=== PATIENT | female | born 1975 | race Caucasian/White ===

== ENCOUNTER 2017-02-03 17:44 | Emergency (ER) | payer OTHER ==
[~2017-02-03] VITALS: Ht 152.4 cm; Wt 63.5 kg
[~2017-02-03 17:44] MED LIST: IBUP-2071 PO; LEVO75 PO
[2017-02-03] MEDS ORDERED: ACETAMINOPHEN 500 MG TABLET PO ONE (19:15)
[2017-02-03] MEDS ORDERED: CYCLOBENZAPRINE HCL 10 MG TABLET PO ONE (19:15)
[2017-02-03] MEDS ORDERED: KETOROLAC TROMETHAMINE 60 MG/2 ML VIAL IM ONE (19:15)
[2017-02-03 19:32] VITALS: BP 122/74
== END 2017-02-03 21:01 | disposition home or self-care (01) ==
LOC: EMS 17:45
DX: M54.5 Low back pain (principal); M25.511 Pain in right shoulder; M25.512 Pain in left shoulder; M54.2 Cervicalgia; E03.9 Hypothyroidism, unspecified; V49.9XXA Car occupant (driver) (passenger) injured in unspecified traffic accident, initial encounter; Y93.89 Activity, other specified; Y92.89 Other specified places as the place of occurrence of the external cause; Y99.8 Other external cause status
CPT/HCPCS: 96372; 99283; J1885

== ENCOUNTER 2018-01-17 05:17 | Emergency (ER) | payer OTHER ==
[~2018-01-17] VITALS: Ht 152.4 cm; Wt 63.1 kg
[2018-01-17] MEDS ORDERED: DiphenhydrAMINE HCL 50 MG/ML VIAL IM ONE (05:45)
[2018-01-17] MEDS ORDERED: KETOROLAC TROMETHAMINE 60 MG/2 ML VIAL IM ONE (05:45)
[2018-01-17 05:49] VITALS: BP 116/73
== END 2018-01-17 06:29 | disposition home or self-care (01) ==
LOC: EMS 05:18
DX: T78.40XA Allergy, unspecified, initial encounter (principal); E03.9 Hypothyroidism, unspecified; Z90.49 Acquired absence of other specified parts of digestive tract; Z79.899 Other long term (current) drug therapy; X58.XXXA Exposure to other specified factors, initial encounter
CPT/HCPCS: 96372; 99284; J1200; J1885

== ENCOUNTER 2018-04-10 07:52 | Emergency (ER) | payer OTHER ==
[~2018-04-10] VITALS: Ht 152.4 cm; Wt 67.3 kg
[2018-04-10] MEDS ORDERED: DEXAMETHASONE SOD PHOS 4 MG/ML 5 ML VIAL IM ONE (09:15)
[2018-04-10] MEDS ORDERED: IBUPROFEN 600 MG TABLET PO ONE (09:15)
[2018-04-10 11:45] VITALS: BP 122/68
== END 2018-04-10 11:48 | disposition home or self-care (01) ==
LOC: EMS 07:55
DX: J02.8 Acute pharyngitis due to other specified organisms (principal); E03.9 Hypothyroidism, unspecified; Z90.49 Acquired absence of other specified parts of digestive tract
CPT/HCPCS: 36415; 96372; 99283; J1100

== ENCOUNTER 2020-12-08 20:17 | Emergency (ER) | payer OTHER ==
[~2020-12-08] VITALS: Ht 152.4 cm; Wt 62.7 kg
[2020-12-08 21:30] LABS: APPEARANCE,URINE CLEAR (CLEAR); BILIRUBIN,URINE NEGATIVE (NEGATIVE); GLUCOSE, URINE (UA) NEGATIVE (NEGATIVE); KETONES,URINE 15 mg/dL (NEGATIVE); LEUKOCYTE ESTERASE ,URINE NEGATIVE (NEGATIVE); NITRATE,URINE NEGATIVE (NEGATIVE); OCCULT BLOOD,URINE LARGE (NEGATIVE); PH,URINE 5.5 (5.0-8.0); PROTEIN,URINE NEGATIVE (NEGATIVE); UROBILINOGEN,URINE 0.2 mg/dL (<=1.0)
[2020-12-08 21:36] LABS: BASOPHILS % (AUTO) 0.2 % (0.0-2.0); EOSINOPHILS % (AUTO) 0.7 % (1.0-6.0); HEMATOCRIT 38.3 % (36-46); HEMOGLOBIN 12.6 g/dL (12.0-16.0); LYMPHOCYTES # (AUTO) 1.3 K/uL (1.0-4.8); LYMPHOCYTES % (AUTO) 8.2 % (22.0-44.0); MEAN CORPUSCULAR HEMOGLOBIN 30.7 pg (26.0-34.0); MEAN CORPUSCULAR VOLUME 93 fL (80-100); MONOCYTES # (AUTO) 0.7 K/uL (0.1-1.0); MONOCYTES % (AUTO) 4.7 % (2.0-9.0); NEUTROPHILS # (AUTO) 13.3 K/uL (1.8-7.7); PLATELET COUNT (AUTO) 310 K/uL (150-450); RED BLOOD CELL COUNT(AUTO) 4.11 MIL/uL (4.00-5.20); RED CELL DISTRIBUTION WIDTH 12.4 % (11.5-14.5)
[2020-12-08 21:38] LABS: NEUTROPHILS % (AUTO) 86.2 % (40.0-70.0)
[2020-12-08 21:57] LABS: BACTERIA,URINE Few /HPF (None Seen); WBC,URINE 0-2 /HPF (0-5); YEAST,URINE Few /HPF (None Seen)
[2020-12-08 22:11] LABS: ANION GAP 8 mmol/L (8-16); CALCIUM, TOTAL 8.8 mg/dL (8.8-10.5); CARBON DIOXIDE 25 mmol/L (22-29); CHLORIDE 104 mmol/L (98-107); CREATININE 0.57 mg/dL (0.60-1.30); GLOMERULAR FILTR. RATE CALC > 60 mL/min (>60); GLUCOSE,RANDOM 116 mg/dL (70-110); POTASSIUM 3.5 mmol/L (3.5-5.1); SODIUM SERUM 137 mmol/L (136-145); UREA NITROGEN, BLOOD 15 mg/dL (7-18)
[2020-12-08] MEDS ORDERED: ONDANSETRON HCL 4 MG/2 ML VIAL IVP ONE (22:15)
[2020-12-08] MEDS ORDERED: DICYCLOMINE HCL 20 MG TABLET PO ONE (22:15)
[2020-12-08] MEDS ORDERED: KETOROLAC TROMETHAMINE 30 MG/ML VIAL IVP ONE (22:15)
[2020-12-08] MEDS ORDERED: SODIUM CHLORIDE 0.9% 1,000 ML IV ONE (22:15)
[2020-12-08 22:25] LABS: ALANINE AMINOTRANSFERASE 36 U/L (12-78); ALBUMIN 3.8 g/dL (3.4-5.0); ALKALINE PHOSPHATASE 87 U/L (46-116); ASPARTATE AMINOTRANSFERASE 26 U/L (15-37); BILIRUBIN,TOTAL 0.4 mg/dL (0.1-1.0); HCG,QUANTITATIVE < 1 mIU/mL (0-6); LIPASE 103 U/L (73-393); TOTAL PROTEIN, SERUM 8.4 g/dL (6.4-8.2)
[2020-12-09 00:31] VITALS: BP 125/77
== END 2020-12-09 00:35 | disposition home or self-care (01) ==
LOC: EMS 20:20
DX: R10.13 Epigastric pain (principal); R11.2 Nausea with vomiting, unspecified; Z90.89 Acquired absence of other organs
CPT/HCPCS: 36415; 76705; 80053; 81001; 83690; 84702; 85025; 96361; 96374; 96375; 99284; J1885; J2405; J7030

== ENCOUNTER 2021-02-06 19:28 | Emergency (ER) | payer OTHER ==
[~2021-02-06] VITALS: Ht 154.9 cm; Wt 63.0 kg
[2021-02-06 20:15] VITALS: BP 117/58
[2021-02-06] MEDS ORDERED: MORPHINE SULFATE 15 MG IR TABLET PO ONE (21:00)
[2021-02-06] MEDS ORDERED: ACETAMINOPHEN 325 MG TABLET PO ONE (21:00)
[2021-02-06] MEDS ORDERED: ACETAMINOPHEN 500 MG TABLET PO ONE (21:15)
== END 2021-02-06 23:36 | disposition home or self-care (01) ==
LOC: EMS 19:28
DX: M79.644 Pain in right finger(s) (principal); Z89.021 Acquired absence of right finger(s); K80.10 Calculus of gallbladder with chronic cholecystitis without obstruction; E03.9 Hypothyroidism, unspecified
CPT/HCPCS: 99283

== ENCOUNTER 2023-10-08 16:40 | Emergency (ER) | payer OTHER ==
[~2023-10-08] VITALS: Ht 152.4 cm; Wt 66.0 kg
[~2023-10-08 16:40] MED LIST changes: +IBUP-1493 PO; -IBUP-2071 PO
[2023-10-08 16:46] VITALS: TEMP 97.7
[2023-10-08 17:19] LABS: BASOPHILS % (AUTO) 0.1 % (0.0-2.0); EOSINOPHILS % (AUTO) 0.9 % (1.0-6.0); HEMATOCRIT 38.1 % (36-46); HEMOGLOBIN 12.7 g/dL (12.0-16.0); LYMPHOCYTES # (AUTO) 1.3 K/uL (1.0-4.8); LYMPHOCYTES % (AUTO) 11.6 % (22.0-44.0); MEAN CORPUSCULAR HEMOGLOBIN 30.4 pg (26.0-34.0); MEAN CORPUSCULAR HGB CONC 33.4 G/dL (31.0-37.0); MEAN CORPUSCULAR VOLUME 91 fL (80-100); MONOCYTES # (AUTO) 0.5 K/uL (0.1-1.0); MONOCYTES % (AUTO) 4.7 % (2.0-9.0); NEUTROPHILS # (AUTO) 9.2 K/uL (1.8-7.7); NEUTROPHILS % (AUTO) 82.7 % (40.0-70.0); PLATELET COUNT (AUTO) 308 K/uL (150-450); RED BLOOD CELL COUNT(AUTO) 4.19 MIL/uL (4.00-5.20); RED CELL DISTRIBUTION WIDTH 13.1 % (11.5-14.5); WHITE BLOOD COUNT (AUTO) 11.1 K/uL (4.5-11.0)
[2023-10-08 17:27] LABS: ANION GAP 5 mmol/L (8-16); CALCIUM, TOTAL 9.5 mg/dL (8.8-10.5); CARBON DIOXIDE 30 mmol/L (22-29); CHLORIDE 101 mmol/L (98-107); CREATININE 0.71 mg/dL (0.60-1.30); GLOMERULAR FILTR. RATE CALC > 60 mL/min (>60); GLUCOSE,RANDOM 116 mg/dL (70-110); POTASSIUM 3.8 mmol/L (3.5-5.1); SODIUM SERUM 136 mmol/L (136-145); UREA NITROGEN, BLOOD 15 mg/dL (7-18)
[2023-10-08 17:39] LABS: APPEARANCE,URINE HAZY (CLEAR); BILIRUBIN,URINE NEGATIVE (NEGATIVE); COLOR,URINE YELLOW (YELLOW); GLUCOSE, URINE (UA) NEGATIVE (NEGATIVE); KETONES,URINE NEGATIVE (NEGATIVE); LEUKOCYTE ESTERASE ,URINE LARGE (NEGATIVE); NITRATE,URINE NEGATIVE (NEGATIVE); OCCULT BLOOD,URINE LARGE (NEGATIVE); PH,URINE 5.5 (5.0-8.0); PROTEIN,URINE TRACE mg/dL (NEGATIVE); SPECIFIC GRAVITIY, URINE 1.025 (1.003-1.030); UROBILINOGEN,URINE <=1.0 mg/dL (<=1.0)
[2023-10-08 17:57] LABS: BACTERIA,URINE Few /HPF (None Seen)
[2023-10-08] MEDS ORDERED: SODIUM CHLORIDE 0.9% 100 ML ONE (19:14)
[2023-10-08] MEDS ORDERED: IOHEXOL 350 MG/ML 100 ML VIAL ONE (19:14)
[2023-10-08] MEDS ORDERED: 0.9% SODIUM CHLORIDE 10 ML SYRINGE IVP ONE (19:14)
[2023-10-08] MEDS: ONDANSETRON HCL 4 MG/2 ML VIAL IVP ONE ×2 (19:26→20:19)
[2023-10-08] MEDS: SODIUM CHLORIDE 0.9% 1,000 ML IV ONE (19:26)
[2023-10-08] MEDS: MORPHINE SULFATE 4 MG/ML SYRINGE IVP ONE ×2 (19:27→20:19)
[2023-10-08] MEDS: IOHEXOL 9 MG/ML 500 ML BOTTLE PO ONE (19:27)
[2023-10-08 19:35] LABS: ALANINE AMINOTRANSFERASE 84 U/L (12-78); ALKALINE PHOSPHATASE 123 U/L (46-116); ASPARTATE AMINOTRANSFERASE 58 U/L (15-37); BILIRUBIN,TOTAL 0.7 mg/dL (0.1-1.0); LIPASE 41 U/L (16-77)
[2023-10-08 19:49] LABS: TROPONIN I-HIGH SENSITIVITY Less Than 4 ng/L (<51)
[2023-10-08] MEDS ORDERED: CORTSUSP AS (20:14)
[2023-10-08] MEDS ORDERED: OMEP20 PO (20:14)
[2023-10-08] MEDS ORDERED: SEMA3TAB4 PO (20:21)
[2023-10-08 20:48] VITALS: BP 118/69; PULSE 106; RESP 20
[2023-10-08] MEDS: DIPHENOXYLATE/ATROP 2.5-0.025 MG TABLET PO ONE (21:06)
[2023-10-08] MEDS: ONDANSETRON HCL 4 MG TABLET PO ONE (21:07)
[2023-10-08] MEDS: HYDROCODONE/ACETAMINOPHEN 5-325 MG TABLET PO ONE (21:07)
[2023-10-08] MEDS ORDERED: HYDR-4062 PO (21:30)
[2023-10-08] MEDS ORDERED: DIPH-1130 PO (21:30)
[2023-10-08] MEDS ORDERED: ONDA-104 PO (21:30)
== END 2023-10-08 21:46 | disposition home or self-care (01) ==
LOC: EMS 16:43
DX: H60.92 Unspecified otitis externa, left ear (principal); R07.89 Other chest pain; K21.9 Gastro-esophageal reflux disease without esophagitis; K80.20 Calculus of gallbladder without cholecystitis without obstruction; Z90.49 Acquired absence of other specified parts of digestive tract; Z98.890 Other specified postprocedural states
CPT/HCPCS: 80048; 80076; 81001; 83690; 84484; 84703; 85025; 36415; 71045; 74177; 99285; 93005; 96361; 96376; 96374; 96375; J2270; J2405; Q0162; Q9967; J7030; J7050; X7700

== ENCOUNTER 2024-10-28 11:59 | Emergency (ER) | payer OTHER ==
[~2024-10-28] VITALS: Ht 153 cm; Wt 63.6 kg
[~2024-10-28 11:59] MED LIST changes: +DIPH-1130 PO; +HYDR-4062 PO; -IBUP-1493 PO; +LOPE-232 PO; +OMEP-148 PO; +ONDA-104 PO; +SEMA3TAB4 PO
[2024-10-28 12:13] VITALS: TEMP 97.9
[2024-10-28] MEDS ORDERED: FAMO20 PO (13:04)
[2024-10-28] MEDS: METHOCARBAMOL 100 MG/ML 10 ML VIAL IVP ONE (13:23)
[2024-10-28] MEDS: MORPHINE SULFATE 4 MG/ML SYRINGE IVP ONE (13:23)
[2024-10-28] MEDS: ACETAMINOPHEN 500 MG TABLET PO ONE (13:23)
[2024-10-28] MEDS: ONDANSETRON HCL 4 MG/2 ML VIAL IVP ONE (13:23)
[2024-10-28] MEDS: KETOROLAC TROMETHAMINE 30 MG/ML VIAL IVP ONE (13:24)
[2024-10-28 13:45] VITALS: BP 102/65; PULSE 71; RESP 15; O2SAT 97
[2024-10-28] MEDS ORDERED: METH-812 PO (14:36)
[2024-10-28] MEDS ORDERED: IBUP-1506 PO (14:36)
[2024-10-28] MEDS ORDERED: HYDR-4072 PO (14:36)
== END 2024-10-28 14:59 | disposition home or self-care (01) ==
LOC: EMS 12:09
DX: S39.012A Strain of muscle, fascia and tendon of lower back, initial encounter (principal); E03.9 Hypothyroidism, unspecified; Z79.899 Other long term (current) drug therapy; Z98.890 Other specified postprocedural states; Z90.49 Acquired absence of other specified parts of digestive tract; X50.0XXA Overexertion from strenuous movement or load, initial encounter; Y93.E8 Activity, other personal hygiene; Y92.89 Other specified places as the place of occurrence of the external cause; Y99.8 Other external cause status
CPT/HCPCS: 99284; 96374; 96375; 72100; J1885; J2270; J2405; J2800

== ENCOUNTER 2025-03-30 17:34 | Emergency (ER) | payer OTHER ==
[~2025-03-30] VITALS: Ht 152.4 cm; Wt 67.0 kg
[~2025-03-30 17:34] MED LIST changes: -DIPH-1130 PO; +FAMO20 PO; -HYDR-4062 PO; +IBUP-1506 PO; -LOPE-232 PO; +METH-812 PO; -OMEP-148 PO; -ONDA-104 PO
[2025-03-30 17:49] VITALS: BP 123/78; PULSE 110; RESP 20; TEMP 100.4; O2SAT 99
[2025-03-30 18:19] LABS: COVID AG,FIA SOURCE NASAL SWAB
[2025-03-30 18:39] LABS: SARS-COV2 (COVID) ANTIGEN,FIA Negative (Negative)
[2025-03-30 18:40] LABS: INFLUENZA TYPE A NEGATIVE FOR TYPE A (NEGATIVE); INFLUENZA TYPE B NEGATIVE FOR TYPE B (NEGATIVE)
[2025-03-30] MEDS: IBUPROFEN 600 MG TABLET PO ONE (18:49)
[2025-03-30] MEDS: ACETAMINOPHEN 500 MG TABLET PO ONE (18:49)
[2025-03-30] MEDS ORDERED: ACET-2247 PO (19:35)
[2025-03-30] MEDS ORDERED: IBUP-1492 PO (19:35)
== END 2025-03-30 20:38 | disposition home or self-care (01) ==
LOC: EMS 17:37
DX: J06.9 Acute upper respiratory infection, unspecified (principal); B97.89 Other viral agents as the cause of diseases classified elsewhere; E03.9 Hypothyroidism, unspecified; Z90.49 Acquired absence of other specified parts of digestive tract; Z98.890 Other specified postprocedural states; Z79.899 Other long term (current) drug therapy; Z20.822 Contact with and (suspected) exposure to COVID-19
CPT/HCPCS: 87804; 99283